=== PATIENT | female | born 1965 | race Caucasian/White ===

== ENCOUNTER 2019-06-29 21:47 | Observation (INO) ==
[2019-06-29 22:47] LABS: URINE SOURCE CLEAN CATCH
[2019-06-29 22:51] LABS: BILIRUBIN URINE NEGATIVE (NEGATIVE); BLOOD URINE NEGATIVE (NEGATIVE); COLOR YELLOW; GLUCOSE URINE NEGATIVE (NEGATIVE); KETONE URINE TRACE mg/dL (NEGATIVE); LEUKOCYTES URINE NEGATIVE (NEGATIVE); NITRITE URINE NEGATIVE (NEGATIVE); PROTEIN URINE TRACE mg/dL (NEGATIVE); SP GRAVITY URINE 1.033; TURBIDITY URINE HAZY (CLEAR); UROBILINOGEN URINE 2 mg/dL (NORMAL)
[2019-06-29 22:54] LABS: UR EPITHELIAL CELLS >10 /HPF (<10); URINE BACTERIA 1+ /HPF; URINE RBC <10 /HPF (<10); URINE WBC <10 /HPF (<10)
[2019-06-29 23:14] LABS: BASO# 0.07 X1000 (0.0-0.2); BASO% 0.6 % (0.0-0.8); EOS# 0.22 X1000 (0.0-0.7); EOS% 1.9 % (0.0-10.0); HEMATOCRIT 45.7 % (37.0-47.0); HEMOGLOBIN 15.1 g/dL (12.0-16.0); IMM GRAN# 0.03 X1000 (0.0-0.04); IMM GRAN% 0.3 % (0.0-0.5); LYMPH# 3.34 X1000 (1.2-3.4); LYMPH% 28.5 % (20.5-51.1); MCH 29.4 PG (27-31); MCV 89.1 FL (81-99); MONO# 0.91 X1000 (0.11-0.59); MONO% 7.8 % (1.7-9.3); MPV 10.8 FL (7.4-10.4); NEUT# 7.15 X1000 (1.4-6.5); NEUT% 60.9 % (42.2-75.2); PLT 278 X1000 (130-400); RBC 5.13 XMIL (4.2-5.4); RDW 13.6 % (11.5-14.5); WBC 11.72 X1000 (4.8-10.8)
[2019-06-29 23:28] LABS: AGAP 15; ALBUMIN 4.4 g/dL (3.5-5.0); ALKALINE PHOSPHATASE 166 U/L (32-104); BUN 20 mg/dL (8-22); CALCIUM 9.7 mg/dL (8.8-10.2); CHLORIDE 100 mmol/L (98-107); COSMO 287; CREATININE 0.6 mg/dL (0.5-0.9); ESTIMATED GFR > 60; GLUCOSE 147 mg/dL (70-104); GOT 35 U/L (10-30); GPT 57 U/L (10-36); LIPASE 20 U/L (13-60); POTASSIUM 3.4 mmol/L (3.5-5.1); SODIUM 141 mmol/L (136-145); TCO2 27 mmol/L (25-35); TOTAL PROTEIN 7.3 g/dL (6.3-8.3)
[2019-06-30] MEDS ORDERED: ZOFRAN IV ONE (00:03)
[2019-06-30] MEDS ORDERED: NS 1,000 ML IV ONE ×2 (00:03→01:36)
--- NOTE | 2019-06-30 00:20 | PROVIDER DOCUMENTATION ---
HPI-Abdominal Pain/GI Problem - General Chief Complaint: Abdominal Pain Stated Complaint: LEFT ABD PAIN Time Seen by Provider: 06/29/19 23:47 Source: patient Allergies/Adverse Reactions: Patient Allergies Allergy/AdvReac Type Severity Reaction Status Date / Time egg Allergy Unknown Verified 06/30/19 08:36 sulfamethoxazole Allergy HIVES Verified 06/30/19 08:36 [From Bactrim] trimethoprim [From Bactrim] Allergy HIVES Verified 06/30/19 08:36 promethazine HCl * AdvReac Unknown Verified 06/30/19 08:36 [From Phenergan] Home Medications: Home Medication List Medication Instructions Recorded Confirmed Last Taken Type ATORVAstatin [Lipitor] 40 mg PO QHS 11/22/17 06/30/19 06/29/19 History Hydrochlorothiazide 25 mg PO DAILY 11/22/17 06/30/19 06/29/19 History Metoprolol [Lopressor] 50 mg PO DAILY 11/22/17 06/30/19 06/29/19 History Sertraline HCl 100 mg PO QAM 11/22/17 06/30/19 06/29/19 History Estrogens, Esterified [Menest] 0.625 mg PO DAILY 06/30/19 06/30/19 06/29/19 History Metformin E.r. [Glucophage Xr] 500 mg PO DAILY 06/30/19 06/30/19 06/29/19 History Pramipexole [Mirapex] 3 tab PO QPM 06/30/19 06/30/19 06/29/19 History - History of Present Illness-ABD Nature of Presenting Problems: Patient is a 53yo F who presents with complaints of LLQ abdominal pain, nausea, diarrhea, and chills that began this morning. Patient reports hx of diverticulitis. Denies fever, vomiting, dysuria, CP, or SOB. Non-toxic in appearance. Abdominal Pain Onset Location: reports: LLQ Pain Radiation: reports: no radiation Quality of Pain: reports: aching, sharp Severity in ED: reports: moderate Onset/Duration: reports: this morning Timing: reports: still present Activities at Onset: reports: none Modifying Factors: improves with: nothing Associated Symptoms: reports: diarrhea, fever/chills, nausea. denies: chest pain, genitourinary problems, shortness of breath, vomiting Last BM: this morning Dark Stools Present?: reports: none noticed Rectal Bleeding: reports: none # of Diarrhea Episodes: 1 Rectal Pain: reports: none # of Vomiting Episodes: 0 Emesis Description: reports: none Bruising or Bleeding Gums?: No Similar Symptoms Previously?: Yes Recently seen or treated by another doctor?: No Review of Systems - Adult - REVIEW OF SYSTEMS - ADULT Constitutional: reports: see HPI, chills. denies: fever Eyes: reports: no symptoms reported Ears, Nose, Mouth & Throat: reports: no symptoms reported Cardiovascular: reports: no symptoms reported. denies: chest pain, palpitations Respiratory: reports: no symptoms reported. denies: cough, shortness of breath Gastrointestinal: reports: see HPI, abdominal pain, diarrhea, nausea. denies: vomiting Genitourinary: reports: no symptoms reported. denies: dysuria, hematuria Musculoskeletal: reports: no symptoms reported Integumentary: reports: no symptoms reported Neurological: reports: no symptoms reported Psychiatric: reports: no symptoms reported Endocrine: reports: no symptoms reported Past History - Adult - PAST MEDICAL HISTORY-ADULT Review of Records: reports: Nursing Assessment Review, Medications Reviewed Major Childhood Illnesses: reports: denies history Cardiovascular: reports: HTN Respiratory: reports: asthma, sleep apnea Gastrointestinal: reports: other (constipation) Obstetrical/Gynecological: reports: denies history Genitourinary: reports: kidney stones Musculoskeletal: reports: denies history Neurological: reports: denies history Endocrine/Immune: reports: denies history Other Conditions: reports: denies history - PRIOR SURGERIES/PROCEDURES Surgical/Procedure History: reports: appendectomy, cholecystectomy, hysterectomy , BTL, orthopedic (extremity) (toe) - PRIOR HOSPITALIZATIONS Prior Hospitalizations: reports: for other non-related - IMMUNIZATION STATUS Childhood Immunizations: See Nurse Assessment Flu Vaccine: See Nurse Assessment - FAMILY HISTORY Family History: reviewed, not pertinent Physical Exam-General - PHYSICAL EXAM-ADULT Initial Vital Signs Reviewed: Yes - CONSTITUTIONAL General Appearance: alert, mild distress. negative: lethargic, slow to respond, obtunded - EYES Eyes: PERRL/EOMI, pink conjunctivae. negative: EOM palsy, scleral icterus - HEAD, EARS, NOSE, MOUTH & THROAT HENMT: normocephalic/atraumatic, moist mucous membranes. negative: angioedema - NECK Neck: full range of motion, supple, normal inspection - RESPIRATORY Respiratory: chest non-tender, lungs clear, normal breath sounds, no pleuratic chest pain, no respiratory distress, no accessory muscle use. negative: crackles, rales, rhonchi, stridor, wheezing - CARDIOVASCULAR Cardiovascular: regular rate, rhythm - GASTROINTESTINAL (ABDOMEN) Abdominal Exam: normal bowel sounds, soft, distended, rebound (LLQ), tenderness (diffuse; worse LLQ). negative: guarding, rigid - MUSCULOSKELETAL Back Exam: normal inspection, no CVA tenderness, no vertebral tenderness Extremity: normal range of motion, non-tender, normal gait, normal inspection - SKIN Integumentary: normal color, warm/dry. negative: cyanosis, jaundice, pallor - NEUROLOGIC Neurologic: grossly normal. negative: abnormal gait, aphasia, EOM palsy - PSYCHIATRIC Psych/Mental Status: normal mood/affect, normal thought content, normal thought process, oriented x 3 Progress - PLAN OF CARE/RESULTS Progress/Plan/Lab Results: Vital Signs - 8 hr 06/29/19 22:25 Temperature 97.9 F Pulse Rate 93 H Respiratory Rate 18 Blood Pressure 136/93 O2 Sat by Pulse Oximetry 94 L Laboratory Results - last 24 hr 06/29/19 06/29/19 06/29/19 22:30 22:58 22:58 WBC 11.72 H RBC 5.13 Hgb 15.1 Hct 45.7 MCV 89.1 MCH 29.4 MCHC 33.0 RDW Std Deviation 13.6 Plt Count 278 MPV 10.8 H Immature Gran % (Auto) 0.3 Neut % (Auto) 60.9 Lymph % (Auto) 28.5 [place] % (Auto) 7.8 Eos % (Auto) 1.9 Baso % (Auto) 0.6 Immature Gran # (Auto) 0.03 Neut # (Auto) 7.15 H Lymph # (Auto) 3.34 [place]iaferro # (Auto) 0.91 H Eos # (Auto) 0.22 Baso # (Auto) 0.07 Sodium 141 Potassium 3.4 L Chloride 100 Carbon Dioxide 27 Anion Gap 15 BUN 20 Creatinine 0.6 Estimated GFR/1.73 m2 > 60 BUN/Creatinine Ratio 33 Glucose 147 H Calculated Osmolality 287 Calcium 9.7 Total Bilirubin 0.30 AST 35 H ALT 57 H Alkaline Phosphatase 166 H Total Protein 7.3 Albumin 4.4 Globulin 3.0 Albumin/Globulin Ratio 2.0 Lipase 20 Urine Source CLEAN CATCH Urine Color YELLOW Urine Turbidity HAZY Urine pH 6.0 Ur Specific [place] 1.033 Urine Protein TRACE A Ur Glucose (Stick) NEGATIVE Ur Ketones (Stick) TRACE A Urine Blood NEGATIVE Urine Nitrite NEGATIVE Urine Bilirubin NEGATIVE Urobilinogen Dipstick 2 A Urine Leukocytes NEGATIVE Urine WBC (Auto) <10 Urine RBC (Auto) <10 U Epithel Cells (Auto) >10 A Urine Bacteria (Auto) 1+ Orders Category Date Time Status Saline Loc NOW Care 06/29/19 23:[address] ABD/PELVIS W/IV CONT ONLY [CT] Stat Exams 06/29/19 23:47 Ordered CBC WITH ELECTRONIC DIFF [HEME] Stat Lab 06/29/19 22:58 Completed COMPREHENSIVE METABOLIC PANEL [CHEM] Stat Lab 06/29/19 22:58 Completed LIPASE [CHEM] Stat Lab 06/29/19 22:58 Completed URINALYSIS W/POSS RFLX CULT [URINALYSIS] Stat Lab 06/29/19 22:30 Completed 0.9% Sodium Chloride Inj [Ns] 1,000 ml Med 06/30/19 00:03 Active IV 999 mls/hr Ondansetron [Zofran] Med 06/30/19 00:03 Discontinued 4 mg IV NOW ONE Lab results, imaging results, plan of care, and need for admission discussed with patient who agrees with and verbalizes understanding. Plan of care discussed and formulated in conjunction with Dr. Álvarez who also examined the patient. Result Diagrams: 07/01/19 05:08 07/01/19 05:08 - CT/MRI 1 CT Study: Abdomen, Pelvis Impression: See EMR Report ("1. Short segment acute sigmoid diverticulitis with no evidence for perforation, abscess, or bowel obstruction.") - CONSULTS/PCP/HOSPITALIST Notification #1 *Consult/PCP/Hospitalist*: Leann Marion Time Discussed: 01:24 Reason/Comments: Diverticulitis - complicated Consult Disposition: Admit (D/t need for possible surgical intervention, admit to [facility] hospitalist) #2 Consult: Leann Chu Time Discussed: 01:30 Reason/Comments: Diverticulitis - complicated Consult Disposition: Admit Departure - Departure Date of Disposition Decision: 06/30/19 Time of Disposition Decision: 01:33 DIAGNOSIS: Diverticulitis, Rebound tenderness, Nausea Disposition: ADMITTED INPATIENT 09 Certified Medical Emergency: Emergent Condition: Stable - Critical Care Note This patient required my direct & personal management of CC.: No Attestation - Physician/ BRENT Attestation Patient care was provided by Advanced Practice Provider:: Yes Advanced Practice Provider:: Linda Castillo Advanced Practice Provider documentation review:: The Mid-level provider documentation, treatment plan and medical decision making was reviewed by the physician who agrees with all treatment and medical decision making by the MLP. The physician spent face to face time with patient:: Yes (Henri) Advanced Practice Provider documentation review:: Supervising physician onsite and consulted in the evaluation and care of this patient. The physician did have a face to face encounter with the patient.
[2019-06-30] MEDS ORDERED: MORPHINE IV ONE ×3 (01:24→06:15)
[2019-06-30] MEDS ORDERED: ZOSYN 3.375 GM in NS 50 ML IV ONE (01:24)
[2019-06-30] MEDS ORDERED: ZOFRAN IV PRN ×2 (01:36→17:19)
--- NOTE | 2019-06-30 07:38 | Diag Imaging Result Doc PS360 ---
EXAM: CT ABD/PELVIS W/IV CONT ONLY INDICATION: LLQ pain; n/v; leukocytosis TECHNIQUE: This exam was performed using automated exposure control, adjustment of mA or kV according to patient size, and/or use of iterative reconstruction technique. COMPARISON: 11/22/2017 FINDINGS: There is mild subsegmental atelectasis at the lung bases. There has been a prior cholecystectomy. There is mild hepatic steatosis. The spleen and pancreas are unremarkable. There is a stable small left adrenal nodule that statistically most likely represents an adenoma. The kidneys and urinary bladder are grossly unremarkable. There has been a prior hysterectomy. There is fairly advanced sigmoid colonic diverticulosis and there is focal pericolonic inflammation adjacent to a segment of the distal sigmoid colon that appears to emanate from a diverticulum consistent with diverticulitis. No loculated fluid collection to indicate abscess and no free abdominal gas is identified to indicate perforation. There is evidence of a prior appendectomy. There is no evidence of bowel obstruction. There is a tiny hiatal hernia. The remainder of the GI tract is essentially unremarkable. There are a couple of small ventral abdominal wall hernias that contain only fat. There is no evidence of acute osseous abnormality. IMPRESSION: 1.Sigmoid colonic diverticulitis without evidence of perforation. 2.Other incidental/nonacute findings detailed above. Electronically signed by Aleks Barnett 06/30/2019 7:36 AM
[2019-06-30] MEDS: ZOSYN 3.375 GM in NS 50 ML IV SCH ×3 (08:21→20:15)
--- NOTE | 2019-06-30 08:51 | HISTORY AND PHYSICAL ---
PRIMARY CARE PHYSICIAN: Paz Ledbetter MD CHIEF COMPLAINT: Left lower quadrant abdominal pain, nausea, diarrhea, and chills that began Friday and progressively worsened. HISTORY OF PRESENTING ILLNESS: This is a 53-year-old female who presents to [facility] ER with complaints of left lower quadrant abdominal pain, diarrhea. She denied any melena, hematochezia. She has had some abdominal distention. All this began Friday and has progressively worsened. Workup in the emergency room showed a white blood cell count of 11.72. AST is 35, ALT 57, with alkaline phosphatase of 166. CT of the abdomen and pelvis shows a sigmoid colonic diverticulitis without evidence of perforation. So, she will be admitted for further evaluation and treatment. PAST MEDICAL HISTORY: Of nephrolithiasis, diverticulitis, asthma, and hypertension. PAST SURGICAL HISTORY: Of a bilateral tubal ligation, hysterectomy, appendectomy, cholecystectomy. FAMILY HISTORY: Reviewed and noncontributory. SOCIAL HISTORY: She currently lives with family. Denied any tobacco, alcohol or illicit drug use. ALLERGIES: To egg, sulfa, and promethazine. HOME MEDICATIONS: A current list will need to be obtained, reconciled, reviewed and restarted as appropriate. We will place an order for nursing to update and confirm home medications. LABORATORY DATA: Showed a white blood cell count of 11.72, hemoglobin 15.1, hematocrit 45.7, platelets 278,000. Sodium 141, potassium 3.4, chloride 100, CO2 of 27, BUN of 20, creatinine 0.6, glucose 147. AST of 35, ALT 57, alkaline phosphatase 166. Urinalysis was negative. CT of the abdomen and pelvis showed a sigmoid colonic diverticulitis without evidence of perforation. REVIEW OF SYSTEMS: She denied any fever, chills, blurred vision, dizziness, chest pain, coughing, shortness of breath. She has had left lower quadrant abdominal pain, nausea, diarrhea, abdominal distention. Denied any burning or hurting with urination. PHYSICAL EXAMINATION: VITAL SIGNS: On arrival, she had a temperature of 97.9 degrees, pulse 93, respirations 18, blood pressure 136/93, saturating 94% on room air. GENERAL: This is a 53-year-old female who is lying in the bed and answers questions appropriately. HEENT: Normocephalic, atraumatic. Normal ENT inspection. Oropharynx and nares are clear. Eyes: Pupils are equal, round, reactive to light and accommodation. Extraocular movements are intact. NECK: Normal inspection. Normal range of motion. LUNGS: Clear to auscultation bilaterally with equal lung expansion and chest wall movement. HEART: Regular rate and rhythm. No murmurs, rubs, or gallops. ABDOMEN: There is tenderness to left lower quadrant to palpation. Bowel sounds are present x4 quadrants. MUSCULOSKELETAL: She has 5/5 strength x4 extremities. NEUROLOGICAL: The cranial nerves 2 through 12 appear grossly intact. ASSESSMENT: 1. Left lower quadrant abdominal pain. 2. An acute diverticulitis. 3. Nausea. 4. Hypertension. PLAN: She has been admitted to the medical unit at [facility], placed on a clear liquid diet, normal saline at 100 mL an hour, Zosyn 3.375 grams IV every 6 hours, Flagyl 500 mg IV every 8 hours. We will recheck a CBC and BMP in the a.m. and further orders after seen by attending. Dictated by KAREN Sears for Grupo Law MD cc: KAREN Sears MD
[2019-06-30] MEDS: FLAGYL 500 MG/NS 500 MG/100 ML IVPB IV SCH ×2 (11:23→22:04)
[2019-06-30] MEDS ORDERED: MORPHINE IV PRN (16:14)
[2019-06-30] MEDS: TYLENOL PO PRN ×2 (17:28→23:30)
[2019-07-01] MEDS: ZOSYN 3.375 GM in NS 50 ML IV SCH ×3 (03:00→20:53)
[2019-07-01] MEDS: FLAGYL 500 MG/NS 500 MG/100 ML IVPB IV SCH ×3 (03:32→22:15)
[2019-07-01] MEDS ORDERED: VANCOMYCIN IV PER PHARMACY MISC SCH (04:15)
[2019-07-01] MEDS: VANCOMYCIN 1 GM/NS 1 GM/250 ML IVPB IV SCH ×2 (05:41→08:03)
[2019-07-01 06:07] LABS: BASO# 0.03 X1000 (0.0-0.2); BASO% 0.5 % (0.0-0.8); EOS# 0.28 X1000 (0.0-0.7); EOS% 4.5 % (0.0-10.0); HEMATOCRIT 42.6 % (37.0-47.0); HEMOGLOBIN 13.8 g/dL (12.0-16.0); IMM GRAN# 0.01 X1000 (0.0-0.04); IMM GRAN% 0.2 % (0.0-0.5); LYMPH# 2.44 X1000 (1.2-3.4); LYMPH% 39.5 % (20.5-51.1); MCH 29.4 PG (27-31); MCHC 32.4 g/dL (33-37); MCV 90.8 FL (81-99); MONO# 0.49 X1000 (0.11-0.59); MONO% 7.9 % (1.7-9.3); MPV 10.4 FL (7.4-10.4); NEUT# 2.92 X1000 (1.4-6.5); NEUT% 47.4 % (42.2-75.2); PLT 255 X1000 (130-400); RBC 4.69 XMIL (4.2-5.4); RDW 13.7 % (11.5-14.5); WBC 6.17 X1000 (4.8-10.8)
[2019-07-01 06:18] LABS: AGAP 10; BUN 10 mg/dL (8-22); CALCIUM 8.7 mg/dL (8.8-10.2); CHLORIDE 103 mmol/L (98-107); COSMO 278; CREATININE 0.6 mg/dL (0.5-0.9); ESTIMATED GFR > 60; GLUCOSE 98 mg/dL (70-104); POTASSIUM 3.6 mmol/L (3.5-5.1); SODIUM 140 mmol/L (136-145); TCO2 27 mmol/L (25-35)
[2019-07-01] MEDS: HYDROCHLOROTHIAZIDE PO SCH (10:23)
[2019-07-01] MEDS: PREMARIN PO SCH (10:23)
[2019-07-01] MEDS: LOPRESSOR PO SCH (10:23)
[2019-07-01] MEDS: ZOLOFT PO SCH (10:24)
[2019-07-01] MEDS ORDERED: PNEUMOVAX 23 IM ONE (12:00)
[2019-07-01] MEDS: DIFLUCAN PO SCH (13:38)
[2019-07-01] MEDS ORDERED: MIRAPEX PO SCH (17:00)
[2019-07-01] MEDS: VANCOMYCIN 1,650 MG in NS 250 ML IV SCH (17:14)
--- NOTE | 2019-07-01 18:43 | PROGRESS NOTE ---
DATE: 07/01/2019 SUBJECTIVE: Patient with no new complaints. States that she is feeling a little bit better. Still having some nausea. Abdominal pain is improved. OBJECTIVE: Vital signs: Temperature 97.5, pulse 58, respiratory rate 18, BP 126/73. General: Patient is pleasant, in no respiratory distress. HEENT: Normocephalic. Neck: Supple. Cardiovascular: Regular rate. Chest: Clear. Abdomen: Soft, nontender. ASSESSMENT: 1. Diverticulitis. 2. Left lower quadrant pain. 3. Nausea. 4. Hypertension. PLAN: We are going to continue patient in the hospital. Continue antibiotics, IV fluids, pain control. We will attempt to advance her diet as her symptoms have improved. She currently is on vancomycin for 1 of 2 blood cultures that are positive. We will follow. cc: Grupo Law MD
[2019-07-01 20:36] LABS: OCCULT BLOOD 1 NEGATIVE (NEGATIVE)
[2019-07-01] MEDS ORDERED: LIPITOR PO SCH (21:00)
[2019-07-02] MEDS: ZOSYN 3.375 GM in NS 50 ML IV SCH ×2 (02:13→07:59)
[2019-07-02] MEDS: VANCOMYCIN 1,650 MG in NS 250 ML IV SCH (04:34)
[2019-07-02] MEDS: FLAGYL 500 MG/NS 500 MG/100 ML IVPB IV SCH (06:45)
[2019-07-02] MEDS: ZOLOFT PO SCH ×2 (07:58→08:09)
[2019-07-02] MEDS: LOPRESSOR PO SCH ×2 (07:59→08:09)
[2019-07-02] MEDS: HYDROCHLOROTHIAZIDE PO SCH (07:59)
[2019-07-02] MEDS: PREMARIN PO SCH (07:59)
[2019-07-02] MEDS: DIFLUCAN PO SCH (07:59)
[2019-07-02 11:19] VITALS: BP 129/68
--- NOTE | 2019-07-02 21:10 | DISCHARGE SUMMARY ---
ADMISSION DATE: 06/30/2019 DISCHARGE DATE: 07/02/2019 PRIMARY CARE PHYSICIAN: Paz Ledbetter. ADMISSION DIAGNOSES: 1. Left lower quadrant abdominal pain. 2. Acute diverticulitis. 3. Nausea. 4. Hypertension. DISCHARGE DIAGNOSES: 1. Left lower quadrant abdominal pain, resolved. 2. An acute diverticulitis, improved. 3. Nausea, resolved. 4. Hypertension summary. SUMMARY OF FINDINGS: This is a 53-year-old female who presented to the ER with complaints of left lower quadrant abdominal pain and diarrhea. No melena or hematochezia. Had some abdominal distention that began Friday and progressively worsened. Workup showed a white blood cell count of 11.72. CT of the abdomen showed a sigmoid colonic diverticulitis without evidence of perforation. She was admitted, placed on IV antibiotics, IV hydration, has responded well. Diet has been advanced to a GI soft diet. White blood cell count is back to normal. She has been afebrile. So it is felt that she can safely be discharged home. DISCHARGE MEDICATIONS: Include atorvastatin 40 mg p.o. at bedtime, Menest 0.625 mg p.o. daily, Diflucan 100 mg p.o. daily #5 with no refills, metoprolol 50 mg p.o. daily, Mirapex 0.25 mg 3 tablets p.o. q.p.m., sertraline 100 mg p.o. q.a.m., cefdinir 300 mg p.o. b.i.d., metformin 500 mg p.o. daily. FOLLOWUP: She will follow up with her primary care physician in 1 to 2 weeks and call the office for an appointment. TIME SPENT: 35 minutes. Dictated by KAREN Sears for Grupo Law MD cc: KAREN Sears MD Mylena Morton
--- NOTE | 2019-07-03 03:38 | DISCHARGE SUMMARY ---
ADMISSION DATE: 06/30/2019 DISCHARGE DATE: 07/02/2019 ADDENDUM: Patient seen and examined by myself. Full note dictated and discussed with nurse practitioner. Patient notes that she is feeling tremendously better. Symptoms have improved. She has tolerated a diet and therefore she is asking to go home. We are going to discharge her home and she will follow up outpatient with GI as she is in need of colonoscopy. She has not had one in the past 6 years. cc: Grupo Law MD
== END 2019-07-02 12:31 | disposition home or self-care (01) ==
LOC: P.ED 21:47 → INTOOBSV 06-30 02:07 → EDIPHOLD 06-30 02:07 → SUATTDRO 06-30 02:07 → P.MEDSURG 06-30 08:48
PROVIDERS: ATTEND Family Medicine